=== PATIENT | female | born 2005 | race African-American/Black ===

== ENCOUNTER 2023-02-25 23:03 | Emergency (ER) | payer OTHER, SELFPAY ==
--- NOTE | 2023-02-25 23:07 | ED.FEMALEGU ---
HPI - Female Genitourinary General Chief complaint: Abdominal Pain Stated complaint: UTI Time Seen by Provider: 02/25/23 23:06 Source: patient Mode of arrival: ambulatory Limitations: no limitations History of Present Illness HPI Narrative: 17-year-old female with a prior history of urinary tract infection presents to the ER with a 2 day history of -- dysuria without any hematuria. no fever or chills. No back pain. Prior history of urinary tract infection. MD elicited complaint: dysuria and UTI Onset (ago): day(s) ( Started 2 days ago) Severity: mild Urinary symptoms: Dysuria and Urgency Exacerbating factors: none Relieving factors: none Associated symptoms: denies other symptoms Possible : unsure if Related Data Allergies Allergy/AdvReac Type Severity Reaction Status Date / Time No Known Allergies Allergy Verified 02/25/23 23:15 Review of Systems Review of Systems: All systems reviewed & are unremarkable except as noted in HPI and below Constitutional: Constitutional: Reports as per HPI and Reports no additional constitutional complaints Eyes: Eyes: Reports as per HPI and Reports no additional eye complaints ENT: Reports system reviewed and no additional complaints, except as documented and Reports as per HPI Cardiovascular: Cardiovascular: Reports as per HPI and Reports no additional cardiovascular complaints Respiratory: Respiratory: Reports as per HPI and Reports no additional respiratory complaints Gastrointestinal: Gastrointestinal: Reports as per HPI and Reports no additional gastrointestinal complaints Genitourinary: Genitourinary: Reports no additional female genitourinary complaints, Reports as per HPI and Reports dysuria Musculoskeletal: Musculoskeletal: Reports no additional musculoskeletal complaints and Reports as per HPI Integumentary/Breasts: Skin/Breast: Reports system reviewed and no additional complaints, except as docu and Reports as per HPI Neurologic: Reports system reviewed and no additional complaints, except as documented and Reports as per HPI Psychiatric: Psychiatric: Reports no additional psychiatric complaints and Reports as per HPI Endocrine: Endocrine: Reports no additional endocrine complaints and Reports as per HPI Hematologic/Lymphatic: Hematologic/Lymphatic: Reports no additional hematologic/lymphatic complaints and Reports as per HPI Allergic/Immunologic: Allergic/Immunologic: Reports no additional allergic/immunologic complaints and Reports as per HPI PMFSH Past Medical History Medical History Urinary tract infection Exam Const: General: healthy appearing and no acute distress Nutritional Appearance: well nourished Orientation/consciousness: patient oriented x3 Limitations: no limitations HENMT: Head: normal to inspection Ears: external ears normal Face/Nose/Sinus: Normal external nose present Face and sinus: normal facial exam Mouth: Yes Normal oral and palatal mucosa present Throat: posterior oropharynx normal Eyes: Conjunctivae: conjunctivae normal Pupils: Equal, round and reactive pupils present EOM: EOMs intact bilaterally Direct Ophthalmoscopy: no photophobia Neck: Neck: normal visual inspection, no lymphadenopathy and no meningeal signs Chest: Chest palpation & inspection: normal inspection of the chest Resp: Effort & Inspection: normal respiratory effort Auscultation: clear to auscultation bilaterally Cardio: Rate: regular rate Rhythm: regular rhythm GI: GI Palp: Yes Soft to palpation Auscultation: normal bowel sounds : General: Yes no CVA tenderness Back/Spine/Pelvis: Back: no CVA tenderness Skin: General skin exam: normal color Rashes: no rashes Wounds: no wounds Neuro: General: patient oriented x3, moves all extremities, no meningeal signs, no focal motor deficits and CN's II-XI intact bilaterally Cranial nerves: Yes Nystagmus not present Speech: norm
[2023-02-25 23:10] VITALS: BP 124/67; PULSE 135; RESP 16; TEMP 36.4; O2SAT 100
[2023-02-25 23:12] LABS: Appearance Urine Cloudy (Clear); Bilirubin Urine Negative (Negative); Blood Urine 3+ (Negative); Color Urine Yellow (Yellow); Glucose Urine UA Negative (Negative); Ketones Urine Negative (Negative); Leukocyte Esterase Ur 3+ LEU/UL (Negative); Nitrate Urine Positive (Negative); Protein Urine 2+ (Negative); Urobilinogen Urine 0.2 mg/dL (0.2-1.0)
[2023-02-25 23:19] LABS: Add Urine Microscopic? YES; Bacteria Urine 3+ /hpf; Squamous Epithelial Cell Urine Rare /hpf (Few); WBC Urine >75 /hpf (0-3)
[2023-02-25 23:20] LABS: Pregnancy On Board Control Positive; Urine Pregnancy Test Negative
[2023-02-25 23:35] VITALS: PULSE 118; RESP 18; O2SAT 99
--- NOTE | 2023-03-01 12:53 | PC.NURSE ---
final urine culture reviewed. >100,000 E.coli. pt prescribed cipro. sensitivity report shows cipro is effective. no change in plan of care.
== END 2023-02-25 23:45 | disposition home or self-care (01) ==
PROVIDERS: Emergency Provider Internal Medicine Critical Care Medicine
DX: N30.00 Acute cystitis without hematuria (principal)
CPT/HCPCS: 81001; 81025; 87077; 87086; 87088; 87186; 99283

== ENCOUNTER 2024-09-22 00:13 | Emergency (ER) | payer OTHER, SELFPAY ==
[2024-09-22 00:15] VITALS: BP 133/71; PULSE 98; RESP 18; TEMP 36.5; O2SAT 97
--- OUTSIDE RECORDS SUMMARY | 2024-09-22 00:15 | XMS_ITS | Clinical Summary ---
Author Organization [facility] Address [facility] [place] [address] Care Team Providers Care Family Educator Name Role Phone None, Provider Primary Care Provider Yonatan Elizabeth MD Unavailable [phone] Allergies No known active allergies Medications Blood Pressure Monitor KitIndications:E levated blood pressure affecting , antepartum ([facility]) 1 kit by Does not apply route 2 (two) times daily. 1 kit 10/20/2022 Active vitamin, low iron, 27-0.8 mg tablet Take 1 tablet by mouth daily. Active vitamin, low iron, 27-0.8 mg tablet Take 1 tablet by mouth daily. 30 tablet 05/19/2024 Active Active Problems Problem Noted Date Diagnosed Date Delivery with history of section ([facility]) 10/18/2022 Elevated blood pressure affe cting , antepartum ([facility]) 10/17/2022 Elevated blood pressure affe cting in third trimester, antepartum ([facility]) 08/12/2022 Comments Yes Family History Medical History Relation Comments No Known Problems Father No Known Problems Mother Relation Status Comments Father Alive Mother Alive Social History Tobacco Use Types Packs/Day Years Used Date Smoking Tobacco: Every Day Cigarettes Passive Smoke Exposure: Current Smokeless Tobacco: Never Tobacco Cessation:Ready to Q uit: Not Asked; Counseling Given: Not Answered Alcohol Use Standard Drinks/Week Comments Not Currently 0 (1 standard drink = 0.6 oz pur e alcohol) Humiliation, Afraid, Rape, and Kick questionnair e Answer Date Recorded Within the last year, have y ou been afraid of your partner or ex-partner? No 10/18/2022 Within the last year, have y ou been humiliated or emotionally abused in other ways by your partner or ex-partner? No Within the last year, have y ou been kicked, hit, slapped, or otherwise physically hurt by your partner or ex-partner? No 10/18/2022 Within the last year, have y ou been raped or forced to have any kind of sexual activity by your partner or ex-partner? No 10/18/2022 Social Connection and Isolation Panel [NHANES] A nswer Date Recorded In a typical week, how many times do you talk on the phone with family, friends, or neighbors? Three times a week 10/19/19 How often do you get togethe r with friends or relatives? Twice a week 10/18/2022 How often do you attend chur ch or adventism services? Patient declined 10/18/2022 Do you belong to any clubs o r organizations such as mu-ism groups, unions, fraternal or athletic groups, or school groups? Patient declined 10/18/2022 How often do you attend meet ings of the clubs or organizations you belong to? Patient declined 10/18/2022 Are you , , di vorced, , never , or living with a partner? Living with partner 10/18/2022 AUDIT-C Answer Date Recorded Q1: How often do you have a drink containing alcohol? Never 10/18/2022 Q2: How many drinks containi ng alcohol do you have on a typical day when you are drinking? Patient does not drink Q3: How often do you have si x or more drinks on one occasion? Never 10/18/2022 Overall Financial Resource Strain (CARDIA) Answe r Date Recorded How hard is it for you to pa y for the very basics like food, housing, medical care, and heating? Hard 10/18/2022 [facility] [place] of Occupat ional Health - Occupational Stress Questionnaire Answer Date Recorded Do you feel stress - tense, restless, nervous, or anxious, or unable to sleep at night because your mind is troubled all the time - these days? Not at all 10/18/2022 Hunger Vital Sign Answer Date Recorded Within the past 12 months, y ou worried that your food would run out before you got the money to buy more. Never true 10/19/19 23 Within the past 12 months, t he food you bought just didn't last and you didn't have money to get more. Never true 10/18/2022 PRAPARE - Transportation Answer Date Re corded In the past 12 months, has l ack of transportation kept you from medical appointments or from getting medications? Yes 07/2022 In the past 12 months, has l ack of transportation kept you from meetings, work, or from getting things needed for daily living? Yes 10/18/2022 Housing Stability Vital Sign Answer Jim e Recorded In the last 12 months, was t here a time when you were not able to pay the mortgage or rent on time? Yes 10/18/2022 In the last 12 months, how many places have you lived? 1 10/18/2022 In the last 12 months, was t here a time when you did not have a steady place to sleep or slept in a long-term (including now)? Yes 10/18/2022 Comments Yes Sex and Gender Information Value Date Recorded Sex Assigned at Not on file Legal Sex Female 10:06 PM COGNOS ARCHITECT Gender Identity Not on file Sexual Orientation Not on file Last Filed Vital Signs Vital Sign Reading Time Taken Comments Blood Pressure 126/79 05/19/2024 6:10 PM COGNOS ARCHITECT Pulse 90 05/19/2024 3:27 PM COGNOS ARCHITECT Temperature 36.6 C (97.8 F) 05/19/2024 3:27 PM COGNOS ARCHITECT Respiratory Rate 16 05/19/2024 3:27 PM COGNOS ARCHITECT Oxygen Saturation 100% 05/19/2024 6:10 PM COGNOS ARCHITECT Inhaled Oxygen Concentration - - Weight 83.2 kg (183 lb 6.4 oz) 05/19/2024 3:27 P M COGNOS ARCHITECT Height 167.6 cm (5' 6) 05/19/2024 3:27 PM COGNOS ARCHITECT Body Mass Index 29.6 05/19/2024 3:27 PM COGNOS ARCHITECT Plan of Treatment Health Maintenance Due Date Last Done Comments Cervical Cancer Screening Pap Smear (Age 21 to 29) Every 3 Years 2003 Cervical Cancer Screening 2003 Annual Physical 05/30/2006 HPV Vaccines (2 - 2-dose series) 12/29/2014 06/29/2014 Chlamydia Screening Females ages 16-24 2019 Meningococcal B Vaccine (1 of 2 - Standard) 2019 Pneumococcal Vaccine: Pediatrics (0 to 5 Years) and At-Risk Patients (6 to 49 Years) (1 of 2 - PCV) 05/30/2022 11/04/2006, 05/12/2006, 11/04/2005, Additional history exists COVID-19 Vaccine (1 - 2023-25 season) 2023 DTaP, Tdap and Td Vaccines (8 - Td or Tdap) 09/13/2030 09/13/2020, 06/29/2014, 09/27/2007, Additional history exists RSV Immunization or 60+ Years (1 - 1-dose 75+ series) 05/30/2078 Hepatitis B Vaccines Completed 05/12/2006, 11/04/2005, 2003, Additional history exists Meningococcal Vaccine Aged Out 06/29/2014 No estella keyla eligible based on patient's age to complete this topic Hepatitis C Completed 08/12/2022 RSV Immunizations Under 20 Months Aged Out No longer eligible based on patient's age to complete this topic Procedures Procedure Name Priority Date/Time Associated Diagnosis Comments HEPATITIS C ANTIBODY STAT 08/12/2022 12:32 PM CDT from Last 3 Months or Most Recently Relevant to Health Maintenance Results * HEPATITIS C ANTIBODY (08/12/2022 12:32 PM CDT) HEPATITIS C AB NON-REACTI VE NON-REACT SHAINA 08/12/2022 2:26 PM CDT [facility] Comment: ANTIBODIES TO HCV NOT DETECTED. DOES NOT EXCLUDE THE POSSIBILITY OF EXPOSURE TO HCV. 08/12/2022 12:3 2 PM CDT Cordelia Cruz MD LABORATORY Final Result [facility] [address] [place] [address], [place] [phone] [id number] from Last 3 Months or Most Recently Relevant to Health Maintenance Insurance [employer] Advance Directives * Full Code (Latest Code Status on File) Date Activated Date Inactivated Comments 10/18/2022 2:46 AM 10/20/2022 7:28 PM * Full Code Date Activated Date Inactivated Comments 10/17/2022 8:09 PM 10/17/2022 11:48 PM * Full Code Date Activated Date Inactivated Comments 08/12/2022 11:02 AM 08/12/2022 5:38 PM * Full Code Date Activated Date Inactivated Comments 08/12/2022 6:12 AM 08/12/2022 10:50 AM Care Teams Family Educator Relationship Specialty Start Date End Date None, Provider, PCP - General UNKNOWN PHYSICIAN SPECIALTY 03/11/22 Yonatan Dye MD [address] [place] [address] FAMILY PRACTICE 05/19/24 05/19/25
--- OUTSIDE RECORDS SUMMARY | 2024-09-22 00:15 | XMS_ITS | Clinical Summary ---
Author Organization [facility] Address [address] [place] [address] Care Team Providers Care Internet Sales Consultant Name Role Phone Unavailable Primary Care Provider Unavailabl e Source Comments [facility],non-owned Affiliates and Associated Physician Practices is amultiple site organization consisting of ambulatory clinics and hospital sitesin [place]. This disclosure is being madepursuant to the Care Everywhere program and may not contain all information available regarding this patient. Last updated 17.[facility] Sure[employer] Active Problems Problem Noted Date Diagnosed Date Methamphetamine use disorder, severe 04/30/2022 Supervision of high-risk of man dodd igravida 04/29/2022 Overview (04/29/2022): Dating: PNL: Pap: GC/CT: Urine cx: UDS: H/H/P: HgbE: Genetics: Anatomy US: Flu shot: LFT's: HCV: Third trimester: GCT: H/H/P: RPR: HIV: Tdap: GBS: Immunizations Immunization Administration Dates Next Due DTAP/HEP B/IPV 05/12/2006,11/04/2005 DTaP VACCINE IM (6wk-6yrs) 09/27/2007,,2003,11/24 HEP A PEDS 2 DOSE 06/29/2014 HEP B VACCINE, PED/ADOL 2003 HIB Hep B 2003,2003 HIB VACCINE 05/12/2006 Human Papilloma Virus Fariba valent Vaccine 06/29/2014 MENINGOCOCCAL ACWY (MCV4P) VAC IM 06/29/2014 MMR VACCINE 09/27/2007,11/04/2005 PNEUMOCOCCAL PCV7 CONJ, PEDS 11/04/2006, 05/12/2006,11/04/2005,12/05,2003 POLIO IPV 09/27/2007,2003,2003 TDAP (7yrs+) 09/13/2020 TDAP, HISTORIC VACCINE 06/29/2014 VARICELLA 09/27/2007,11/09/2006 Social History Tobacco Use Types Packs/Day Years Used Date Smoking Tobacco: Never Assessed Comments No Sex and Gender Information Value Date Recorded Sex Assigned at Not on file Legal Sex Female 5:42 AM DIRECTOR OF ANCILLARY SERVICES Gender Identity Not on file Sexual Orientation Not on file Last Filed Vital Signs Vital Sign Reading Time Taken Comments Blood Pressure - - Pulse - - Temperature - - Respiratory Rate - - Oxygen Saturation - - Inhaled Oxygen Concentration - - Weight - - Height 167.6 cm (5' 6) 04/30/2022 11:36 AM DIRECTOR OF ANCILLARY SERVICES Body Mass Index - - Plan of Treatment Health Maintenance Due Date Last Done Comments HPV VACCINE (2 - 2-dose series) 12/29/2014 06/29/2014 HIV SCREENING 05/30/2018 CHLAMYDIA/GONORRHEA SCREENING 2019 MENINGOCOCCAL (Group B) VACCINE SHARED DECISION-MAKING (1 of 2 - Standard) 2019 HEPATITIS C SCREENING 05/26/2021 COVID-19 VACCINE ( - 2023- season) 2023 DEPRESSION SCREENING 03/16/2024 PAP SMEAR 05/30/2024 INFLUENZA VACCINE (#1) 2024 DTAP/TDAP/TD VACCINES (8 - Td or Tdap) 09/13/2030 09/13/2020, 06/29/2014, 09/27/2007, Additional history exists ZOSTER VACCINE (1 of 2) 05/30/2053 HEPATITIS B VACCINE Completed 05/12/2006, 11/04/2005, 2003, Additional history exists HIB VACCINE Completed 05/12/2006, 11/15, 2003 PNEUMOCOCCAL VACCINE Completed 11/04/2006, 05/12/2006, 11/04/2005, Additional history exists MENINGOCOCCAL GROUPS A/C/Y/W VACCINE Aged Out 06/29/2014 No longer eligible based on patient's age to complete this topic Insurance [facility]
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
--- NOTE | 2024-09-22 00:38 | PC.NURSE ---
pt aware urine specimen is needed. pt unable to go at this time. given ice water
--- OUTSIDE RECORDS SUMMARY | 2024-09-22 00:38 | XMS_ITS | Clinical Summary ---
Author Organization [facility] Address [facility] [place] [address] Care Team Providers Care Gifts Officer Name Role Phone None, Provider Primary Care Provider Yonatan Elizabeth MD Unavailable [phone] Allergies No known active allergies Medications Blood Pressure Monitor KitIndications:E levated blood pressure affecting , antepartum ([facility]) 1 kit by Does not apply route 2 (two) times daily. 1 kit 10/20/2022 Active vitamin, low iron, 27-0.8 mg tablet Take 1 tablet by mouth daily. Active vitamin, low iron, 27-0.8 mg tablet Take 1 tablet by mouth daily. 30 tablet 05/19/2024 Active Active Problems Problem Noted Date Diagnosed Date Delivery with history of section ([facility]) 10/18/2022 Elevated blood pressure affe cting , antepartum ([facility]) 10/17/2022 Elevated blood pressure affe cting in third trimester, antepartum ([facility]) 08/12/2022 Comments Yes Family History Medical History [...] often do you attend chur ch or taoism services? Patient declined 10/18/2022 Do you belong to any clubs o r organizations such as denominational groups, unions, fraternal or athletic groups, or [...] housing, medical care, and heating? Hard 10/18/2022 [facility] [place] of Occupat ional Health - Occupational Stress [...] place to sleep or slept in a alf (including now)? Yes 10/18/2022 Comments Yes Sex and Gender Information Value Date Recorded Sex Assigned at Not on file Legal Sex Female 10:06 PM DIRECTOR DERMATOLOGY Gender Identity Not on file Sexual Orientation Not on file Last Filed Vital Signs Vital Sign Reading Time Taken Comments Blood Pressure 126/79 05/19/2024 6:10 PM DIRECTOR DERMATOLOGY Pulse 90 05/19/2024 3:27 PM DIRECTOR DERMATOLOGY Temperature 36.6 C (97.8 F) 05/19/2024 3:27 PM DIRECTOR DERMATOLOGY Respiratory Rate 16 05/19/2024 3:27 PM DIRECTOR DERMATOLOGY Oxygen Saturation 100% 05/19/2024 6:10 PM DIRECTOR DERMATOLOGY Inhaled Oxygen Concentration - - Weight 83.2 kg (183 lb 6.4 oz) 05/19/2024 3:27 P M DIRECTOR DERMATOLOGY Height 167.6 cm (5' 6) 05/19/2024 3:27 PM DIRECTOR DERMATOLOGY Body Mass Index 29.6 05/19/2024 3:27 PM DIRECTOR DERMATOLOGY Plan of Treatment Health Maintenance Due Date [...] VE NON-REACT SHAINA 08/12/2022 2:26 PM CDT [facility] Comment: ANTIBODIES TO HCV NOT DETECTED. DOES NOT EXCLUDE THE POSSIBILITY OF EXPOSURE TO HCV. 08/12/2022 12:3 2 PM CDT Cordelia Cruz MD LABORATORY Final Result [facility] [address] [place] [address], [place] [phone] [id number] from Last 3 Months or Most Recently [...] 6:12 AM 08/12/2022 10:50 AM Care Teams Gifts Officer Relationship Specialty Start Date End Date None, Provider, PCP - General UNKNOWN PHYSICIAN SPECIALTY 03/11/22 Yonatan Dye MD [address] [place] [id number] FAMILY PRACTICE 05/19/24 05/19/25
--- OUTSIDE RECORDS SUMMARY | 2024-09-22 00:38 | XMS_ITS | Clinical Summary ---
Author Organization [facility] Address [address] [place] [address] Care Team Providers Care Restaurant Hourly Team Member Name Role Phone Unavailable Primary Care Provider Unavailabl e Source Comments [facility],non-owned Affiliates and Associated Physician Practices is amultiple site organization consisting of ambulatory clinics and hospital sitesin [place], [place], [place] and [place]. This disclosure is being madepursuant to the Care Everywhere program and may not contain all information available regarding this patient. Last updated 17.[facility] [employer] Active Problems Problem Noted Date Diagnosed Date [...] on file Legal Sex Female 5:42 AM SCALE EXPERT Gender Identity Not on file Sexual Orientation Not on file Last Filed Vital Signs Vital Sign Reading Time Taken Comments Blood Pressure - - Pulse - - Temperature - - Respiratory Rate - - Oxygen Saturation - - Inhaled Oxygen Concentration - - Weight - - Height 167.6 cm (5' 6) 04/30/2022 11:36 AM SCALE EXPERT Body Mass Index - - Plan of [...] patient's age to complete this topic Insurance [facility]
--- NOTE | 2024-09-22 00:52 | PC.NURSE ---
Patient requesting to run out to truck to get her wallet and her phone, stated she would be right back in.
[2024-09-22 00:57] LABS: Add Urine Microscopic? YES; Appearance Urine Clear (Clear); Glucose Urine UA Negative (Negative); Leukocyte Esterase Ur Negative LEU/UL (Negative); Nitrate Urine Negative (Negative); Specific Grav Ur >= 1.030 (1.010-1.020)
== END 2024-09-22 00:52 | disposition left against medical advice (07) ==
PROVIDERS: Emergency Provider Emergency Medicine; PCP Family Medicine
DX: O23.592 Infection of other part of genital tract in pregnancy, second trimester (principal); Z3A.27 27 weeks gestation of pregnancy
CPT/HCPCS: 81001; 99283